=== PATIENT | female | born 1995 ===

== ENCOUNTER 2025-07-03 09:33 | Outpatient (CLI) | payer OTHER, SELFPAY ==
--- OUTSIDE RECORDS SUMMARY | 2025-07-03 10:23 | XMS_ITS | Clinical Summary ---
Author Organization [facility] Address [address] [place] [address] Care Team Providers Care Supervisor Forming Department Name Role Phone Unavailable Primary Care Provider Unavailabl e Source Comments [facility],non-owned Affiliates and Associated Physician Practices is amultiple site organization consisting of ambulatory clinics and hospital sitesin [place], [place], [place] and [place]. This disclosure is being madepursuant to the Care Everywhere program and may not contain all information available regarding this patient. Last updated 18.[facility] Allergies No known active allergies Medications * Be aware that medications may not be up to date on this document. Alwaysverify current medications with the patient. Vit-Fe Fumarate-FA ( VITAMIN) 28-0.8 MG tabletIndicatio ns: Take 1 tablet by mouth once daily Reasons: Active ferrous sulfate 325 (65 FE) MG tabletIndicatio ns:Iron Deficiency Anemia Take 325 mg by mouth once daily Reasons: Anemia From Inadequate Iron in the Body Active vitamin D3 (CHOLECALCIFERO L) 25 MCG (1000 UNITS) tablet Take 5,000 Units by mouth once daily Active iron sucrose 200 mg in 0.9% NaCl IV 0.9 % 100 mL 200 mg by Intravenous route once Active Active Problems Problem Noted Date Diagnosed Date Second 06/02/2021 Encounter for ultrasound 06/02/2021 History of gastric bypass 06/02/2021 Hx of gestational diabetes i n prior , currently , unspecified trimester 06/02/2021 Anemia 06/02/2021 Antibody S titer positive, antepartum 06/02/2021 Positive RPR test 06/02/2021 Overview (06/02/2021): Titer 1:4 FTA-ABS reactive Family History Relation Name Status Comments Brother Alive Father Maternal Grandfather Maternal Grandmother Alive had cate k surgery Mother Alive Paternal Grandfather Alive Paternal Grandmother Sister 1 Alive Sister 2 Alive Sister 3 Alive half-brother 1 Alive half-brother 2 Alive Social History Tobacco Use Types Packs/Day Years Used Date Smoking Tobacco: Never Smokeless Tobacco: Never Alcohol Use Standard Drinks/Week Comments Not Currently 0 (1 standard drink = 0.6 oz pur e alcohol) Comments No Sex and Gender Information Value Date Recorded Sex Assigned at Not on file Legal Sex Female 2:18 PM CDT Gender Identity Not on file Sexual Orientation Not on file Last Filed Vital Signs Vital Sign Reading Time Taken Comments Blood Pressure 114/56 08/01/2021 10:12 AM CDT Pulse 102 08/01/2021 10:12 AM CDT Temperature - - Respiratory Rate 18 07/04/2021 9:02 AM CDT Oxygen Saturation - - Inhaled Oxygen Concentration - - Weight 104.3 kg (230 lb) 08/01/2021 10:12 AM CDT Height 156.2 cm (5' 1.5) 06/05/2021 2:20 PM CDT Body Mass Index 42.75 06/05/2021 2:20 PM CDT Plan of Treatment Health Maintenance Due Date Last Done Comments HEPATITIS C SCREENING 11/24/2011 DTAP/TDAP/TD VACCINES (1 - Tdap) 2012 HEPATITIS B VACCINE (1 of 3 - 19+ 3-dose series) 2012 HPV VACCINE (1 - 3-dose SCDM series) 2020 DEPRESSION SCREENING 10/04/2024 COVID-19 VACCINE (1 - 2023-2 5 season) 2025 INFLUENZA VACCINE (#1) 2025 ZOSTER VACCINE (1 of 2) 2043 HIV SCREENING Completed 07/16/2021, 03/18/2021 HIB VACCINE Aged Out No longer eligi ble based on patient's age to complete this topic MENINGOCOCCAL (Group B) VACCINE SHARED DECISION-MAKING Aged Out No longer eligible based on patient's age to complete this topic MENINGOCOCCAL GROUPS A/C/Y/W VACCINE Aged Out No longer eligible b ased on patient's age to complete this topic PNEUMOCOCCAL VACCINE Aged Out No long er eligible based on patient's age to complete this topic Insurance
--- OUTSIDE RECORDS SUMMARY | 2025-07-03 10:23 | XMS_ITS | Clinical Summary ---
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 Medications phentermine 37.5 mg capsule Take 37.5 mg by mouth every morning Active ferrous sulfate 325 mg (65 mg of elemental iron) tabletIndicatio ns:Iron Deficiency Anemia Take 1 tablet (325 mg total) by mouth 2 (two) times a day Take 1 tablet every other day with food or orange juice if this is not upsetting her stomach take it daily and if you can tolerate that then you may take it twice per day for a total of 60 tablets 60 tablet 1 Active Surgical History Surgery Date Site/Laterality Comments SLEEVE GASTROPLASTY 10/04/2018 - 10/03/2019 Medical History Medical History Date Comments Anemia Family History Medical History Relation Name Comments Cancer Maternal Grandmother Cancer Mother's Sister Relation Name Status Comments Maternal Grandmother Mother's Sister Social History Tobacco Use Types Packs/Day Years Used Date Smoking Tobacco: Former Cigarettes 0.5 3 2 012 - 2015 Smokeless Tobacco: Never AUDIT-C Answer Date Recorded Q1: How often do you have a drink containing alc ohol? 2-4 times a month 03/19/2022 Q2: How many drinks containi ng alcohol do you have on a typical day when you are drinking? 1 or 2 03/19/2022 Q3: How often do you have si x or more drinks on one occasion? Never 03/19/2022 Comments No Sex and Gender Information Value Date Recorded Sex Assigned at Not on file Legal Sex Female 9:01 PM TICKET [employer]ORTER Gender Identity Not on file Sexual Orientation Not on file Obstetrics History Last Filed Vital Signs Vital Sign Reading Time Taken Comments Blood Pressure 147/63 03/27/2022 12:35 PM CDT Pulse 66 03/27/2022 12:35 PM CDT Temperature 36.2 C (97.2 F) 03/27/2022 12:20 PM CDT Respiratory Rate 14 03/27/2022 12:3 5 PM CDT Oxygen Saturation 97% 03/27/2022 12: 35 PM CDT Inhaled Oxygen Concentration - - Weight 105.4 kg (232 lb 4.8 oz) 03/27/2022 6:15 AM CDT Height 157.5 cm (5' 2) 03/27/2022 6:15 AM CDT Body Mass Index 42.49 03/27/2022 6:15 AM CDT Plan of Treatment Not on file Insurance [employer] IDPA IDPA Care Teams Sales Hunter Relationship Specialty Start Date End Date Chuy Lainez MD PCP - General Internal Medicine 03/18/22
[2025-07-03 10:31] LABS: Hematocrit 31.2 % (37.0-47.0); Hemoglobin 9.4 g/dL (12.0-15.0); Immature Granulocyte Percent A 0.4 % (0-0.5); Lymphocytes Absolute Auto 1.37 K/mm3 (0.9-3.2); Mean Corpuscular HGB Conc 30.1 g/dl (32-36); Mean Corpuscular Hemoglobin 24.7 pg (26-34); Mean Corpuscular Volume 81.9 fl (80-100); Nucleated Red Blood Cells Absolute Auto 0.000 K/mm3 (0.0-0.012); Nucleated Red Blood Cells Perc 0.0 % (0.0-0.2); Platelet Count Result 241 k/mm3 (150-375); Red Blood Count 3.81 M/mm3 (4.2-5.4); White Blood Count 5.2 K/mm3 (4.5-10.0)
[2025-07-03 10:49] LABS: Hemoglobin A1C 5.0 % (<5.7)
[2025-07-03 10:54] LABS: Alanine Aminotransferase 8 U/L (6-35); Albumin Level 4.4 g/dL (3.5-5.1); Alkaline Phosphatase 40 U/L (38-126); Anion Gap 9 mmol/L (4-12); Aspartate Amino Transferase 19 U/L (14-36); Bilirubin,Total 0.4 mg/dL (0.2-1.3); Blood Urea Nitrogen 7 mg/dL (7-17); Calcium 8.9 mg/dL (8.4-10.2); Carbon Dioxide 25 mmol/L (22-30); Chloride 105 mmol/L (98-107); Cholesterol 141 mg/dL (0-200); Estimated Glomerular Filt Rate > 60; Glucose 84 mg/dL (65-110); HDL Direct 55 mg/dL; Potassium 3.6 mmol/L (3.4-5.0); Sodium 139 mmol/L (137-145); Total Protein 7.5 g/dL (6.3-8.2); Triglycerides 55 mg/dL (<150)
[2025-07-03 11:35] LABS: Ferritin 4.51 ng/mL (6.24-137)
[2025-07-03 11:49] LABS: Vitamin B12 264.0 pg/mL (239-931)
== END 2025-07-03 09:34 | disposition home or self-care (01) ==
PROVIDERS: PCP Family Medicine; Visit Provider Family Medicine
DX: Z00.00 Encounter for general adult medical examination without abnormal findings (principal); D64.9 Anemia, unspecified; T78.40XA Allergy, unspecified, initial encounter; Z98.84 Bariatric surgery status
CPT/HCPCS: 36415; 80053; 80061; 82306; 82607; 82728; 83036; 85025